=== PATIENT | male | born 1945 | race Caucasian/White ===

== ENCOUNTER 2019-09-24 16:00 | Outpatient (RCR) | payer MEDICARE, OTHER | END 2019-09-27 | LOC: PT 16:00 | PROVIDERS: ATTEND Specialist | DX: M70.61 Trochanteric bursitis, right hip (principal) ==

== ENCOUNTER 2019-10-01 16:03 | Outpatient (RCR) | payer MEDICARE | END 2019-10-28 | LOC: PT 16:03 | PROVIDERS: ATTEND Specialist | DX: M70.61 Trochanteric bursitis, right hip (principal); M25.551 Pain in right hip; M62.81 Muscle weakness (generalized) | CPT/HCPCS: 97139 ==